=== PATIENT | male | born 1990 | race Caucasian/White ===

== ENCOUNTER 2017-01-29 21:27 | Emergency (ER) | payer OTHER ==
[2017-01-29 21:30] VITALS: BP 150/80; PULSE 110; TEMP 98; BMI 27.0
[2017-01-29] MEDS ORDERED: IBUPROFEN 600 MG TABLET (FP) PO ONE ×2 (22:32→22:49)
--- NOTE | 2017-01-29 23:56 | PDOC ---
History of Present Illness - General History Source: Patient <Sanchez Urena - Last Filed: 01/29/17 23:52> - General History Source: Patient Exam Limitations: No Limitations - History of Present Illness Initial Comments: 01/30/17 00:05 The patient is a 26 year old male with no significant past medical history who presents to the ED with left ankle pain prior to arrival. Patient reports he was playing basketball, when he went to shoot for the basket and someone stepped on his left foot, sustaining pain and mild swelling to the left ankle. He is currently ambulating with crutches. The patient denies fever, chills, cough, SOB, chest pain, and palpitations. The patient denies abdominal pain, nausea, vomiting, and diarrhea. Allergies: NKDA Social History: No alcohol, tobacco, or drug use reported. Past Surgical History: None reported PCP: None reported <Candice Neal - Last Filed: 01/30/17 00:05> - General Chief Complaint: Injury Stated Complaint: L ANKLE INJURY Time Seen by Provider: 01/29/17 22:30 Past History - Psycho/Social/Smoking Cessation Hx Suicidal Ideation: No Smoking History: Never smoked Information on smoking cessation initiated: No Hx Alcohol Use: No Drug/Substance Use Hx: No <RomelSanchez - Last Filed: 01/29/17 23:52> <Candice Neal - Last Filed: 01/30/17 00:05> - Past Medical History Allergies/Adverse Reactions: Allergies Allergy/AdvReac Type Severity Reaction Status Date / Time No Known Allergies Allergy Verified 01/29/17 21:31 Home Medications: Ambulatory Orders NK [No Known Home Medication] 01/29/17 Review of Systems - Review of Systems Able to Perform ROS?: Yes Comments:: 01/30/17 00:05 CONSTITUTIONAL: Absent: fever, no chills, no fatigue EYES: Absent: visual changes ENT: Absent: ear pain, no sore throat CARDIOVASCULAR: Absent: chest pain, no palpitations RESPIRATORY: Absent: cough, no SOB GI: Absent: abdominal pain, no nausea, no vomiting, no constipation, no diarrhea GENITOURINARY: Absent: dysuria, no frequency, no hematuria MUSCULOSKELETAL: +left ankle pain and swelling Absent: back pain SKIN: Absent: rash NEURO: Absent: headache <Hung Nealta - Last Filed: 01/30/17 00:05> *Physical Exam - Vital Signs Last Vital Signs Temp Pulse Resp BP Pulse Ox 98.0 F 110 H 20 150/80 98 01/29/17 21:28 01/29/17 21:28 01/29/17 21:28 01/29/17 21:28 01/29/17 21:28 <Sanchez Urena - Last Filed: 01/29/17 23:52> - Vital Signs Last Vital Signs Temp Pulse Resp BP Pulse Ox 98.0 F 110 H 20 150/80 98 01/29/17 21:28 01/29/17 21:28 01/29/17 21:28 01/29/17 21:28 01/29/17 21:28 - Physical Exam Comments: 01/30/17 00:05 GENERAL: Well-appearing, well-nourished. No apparent distress. HEENT: Normocephalic, atraumatic. PERRL, EOM intact. CARDIOVASCULAR: Normal S1, S2. Regular rate and rhythm. PULMONARY: Clear to auscultation bilaterally. ABDOMEN: Soft, non-distended, non-tender. EXTREMITIES: Mild tenderness to medial malleolus of the left ankle. Mild swelling to the dorsum of the left foot. No gross deformities and good ROM. SKIN: Warm, dry. No rash NEUROLOGICAL: No focal neurological deficits. <LindaernstCandice - Last Filed: 01/30/17 00:05> ED Treatment Course - Medications Given in the ED: ED Medications Discontinued Medications Generic Name Dose Route Start Last Admin Trade Name Freq PRN Reason Stop Dose Admin Ibuprofen 600 mg 01/29/17 22:32 01/29/17 22:52 Motrin - PO 01/29/17 22:33 600 mg ONCE ONE Administration <Sanchez Urena - Last Filed: 01/29/17 23:52> - Medications Given in the ED: ED Medications Discontinued Medications Generic Name Dose Route Start Last Admin Trade Name Freq PRN Reason Stop Dose Admin Ibuprofen 600 mg 01/29/17 22:32 01/29/17 22:52 Motrin - PO 01/29/17 22:33 600 mg ONCE ONE Administration <ÁngelCandice - Last Filed: 01/30/17 00:05> Medical Decision Making - Medical Decision Making 01/29/17 23:53 Dr. Urena: The scribe's documentation has been prepared under my direction and personally reviewed by me in its entirery. I confirm that the note above accurately reflects all work, treatment, procedures, and medical decision making performed by me. Patient with small avulsion fracture Of medial malleolus of left ankle. No deformity. Pt will be referred to ortho <Sanchez Urena - Last Filed: 01/29/17 23:52> *DC/Admit/Observation/Transfer - Discharge Dispostion Admit: No <Sanchez Urena - Last Filed: 01/29/17 23:52> - Attestations Scribe Attestion: 01/30/17 00:05 Documentation prepared by Candice Neal, acting as medical laboratory technologist for Sanchez Urena MD <Candice Neal - Last Filed: 01/30/17 00:05> Diagnosis at time of Disposition: Left ankle sprain Qualifiers: Encounter type: initial encounter Involved ligament of ankle: unspecified ligament Qualified Code(s): S93.402A - Sprain of unspecified ligament of left ankle, initial encounter Avulsion fracture of ankle Qualifiers: Encounter type: initial encounter Fracture type: closed Laterality: left Qualified Code(s): S82.892A - Other fracture of left lower leg, initial encounter for closed fracture - Discharge Dispostion Disposition: HOME Condition at time of disposition: Stable - Referrals Referrals: Henok Baker MD [Staff Physician] - - Patient Instructions Printed Discharge Instructions: DI for Ankle Sprain, DI for Ankle Fracture
== END 2017-01-30 01:07 | disposition home or self-care (01) ==
LOC: JER 21:27
DX: S82.55XA Nondisplaced fracture of medial malleolus of left tibia, initial encounter for closed fracture (principal); S93.402A Sprain of unspecified ligament of left ankle, initial encounter; W51.XXXA Accidental striking against or bumped into by another person, initial encounter; Y93.67 Activity, basketball; Y92.310 Basketball court as the place of occurrence of the external cause; Y99.8 Other external cause status
CPT/HCPCS: 73610-TC-LT; 73630-TC-LT; 99281-25

== ENCOUNTER 2017-12-31 21:05 | Emergency (ER) | payer OTHER ==
[2017-12-31 21:26] VITALS: BP 129/90; PULSE 90; TEMP 98.6; BMI 27.4
--- NOTE | 2017-12-31 21:50 | PDOC ---
History of Present Illness - General Chief Complaint: Injury Stated Complaint: RIGHT ANKLE PAIN & SWELLING Time Seen by Provider: 12/31/17 21:50 - History of Present Illness Initial Comments: 12/31/17 23:31 27M with PMHx of L ankle injury/fracture p/w cc of R ankle pain after jumping while playing basketball. Landed back onto his foot and twisted the ankle with eversion. Denies other injuries, no fall nor head strike. Has been able to ambulate but with difficulty 2/2 pain. Past History - Past Medical History Allergies/Adverse Reactions: Allergies Allergy/AdvReac Type Severity Reaction Status Date / Time No Known Allergies Allergy Verified 12/31/17 21:27 Home Medications: Ambulatory Orders NK [No Known Home Medication] 01/29/17 COPD: No Other medical history: FX LEFT ANKLE - Suicide/Smoking/Psychosocial Hx Smoking History: Never smoked Hx Alcohol Use: Yes Drug/Substance Use Hx: No Substance Use Type: None Review of Systems - Review of Systems Able to Perform ROS?: Yes Is the patient limited Liberian proficient: No Constitutional: Yes: See HPI Respiratory: No: SOB with Exertion, SOB at Rest Cardiac (ROS): No: Chest Pain, Edema ABD/GI: No: Diarrhea, Nausea, Vomiting Musculoskeletal: Yes: Symptoms Reported All Other Systems: Reviewed and Negative *Physical Exam - Vital Signs Last Vital Signs Temp Pulse Resp BP Pulse Ox 98.6 F 90 16 129/90 97 12/31/17 21:17 12/31/17 21:17 12/31/17 21:17 12/31/17 21:17 12/31/17 21:17 - Physical Exam General Appearance: Yes: Nourished HEENT: positive: EOMI Neck: positive: Trachea midline. 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 Fracture vs sprain. - XR to r/o fracture - motrin/tylenol 01/01/18 00:16 XR reviewed, I do not see a fracture. Placed posterior splint, crutches and recommended f/u with orthopedics later today. Pt has imaging on CD for orthopedist to review. Has an orthopedist and feels comfortable with arranging his follow up. Discharged home, wbat. *DC/Admit/Observation/Transfer Diagnosis at time of Disposition: Ankle pain, right - Discharge Dispostion Disposition: HOME Condition at time of disposition: Good Admit: No - Referrals - Patient Instructions Printed Discharge Instructions: DI for Ankle Sprain Additional Instructions: You were seen in the ER for ankle pain after an incident during basketball. You have swelling, but the XR does not appear to show any broken bones. A radiologist will also read the XR, you will receive a call if your x-ray is abnormal. Please keep the splint in place and follow up with the orthopedic doctor tomorrow, bring the CD with the XR images. Elevate your leg, take motrin for pain and apply ice to the ankle. - Post Discharge Activity
[2017-12-31] MEDS ORDERED: IBUPROFEN 400 MG TABLET (FP) PO ONE ×2 (21:52→22:35)
[2017-12-31] MEDS ORDERED: ACETAMINOPHEN 325 MG TABLET (FP) PO ONE (21:53)
[2017-12-31] MEDS ORDERED: ACETAMINOPHEN 325 MG TABLET (FP) ONE (22:35)
== END 2018-01-01 01:20 | disposition home or self-care (01) ==
LOC: FER 21:05
PROC: 2W3QX1Z Immobilization of Right Lower Leg using Splint (ICD-10-PCS; principal; 2017-12-31)
DX: M25.571 Pain in right ankle and joints of right foot (principal); X58.XXXA Exposure to other specified factors, initial encounter; Y93.89 Activity, other specified; Y92.9 Unspecified place or not applicable
CPT/HCPCS: 73590-TC-RT-FY; 73610-TC-RT-FY; 99282-25